=== PATIENT | female | born 1990 | race Caucasian/White ===

== ENCOUNTER 2018-12-11 13:07 | Emergency (ER) | payer OTHER ==
[~2018-12-11] VITALS: Ht 157.5 cm; Wt 64.4 kg
[2018-12-11] MEDS ORDERED: WELLBUTRIN SR150 MG (13:24)
[2018-12-11] MEDS ORDERED: CLONAZEPAM0.25 MG (13:24)
== END 2018-12-11 17:15 | disposition left against medical advice (07) ==
LOC: ER 13:07
DX: K52.89 Other specified noninfective gastroenteritis and colitis (principal)